=== PATIENT | female | born 1935 | race Caucasian/White ===

== ENCOUNTER 2019-02-21 11:06 | Inpatient (IN) ==
[2019-02-21 12:56] LABS: Apearance,Urine CLOUDY (Clear); Bilirubin,Urine Negative (Negative); Blood, Urine Moderate mg/dL (Negative); Glucose,Urine (UA) Negative (Negative); Hyaline Casts,Urine 130 /LPF (0-3); Ketones,Urine Negative (Negative); Nitrite,Urine Negative (Negative); Protein,Urine 30 MG/DL; RBC,Urine 14 /HPF (0-4); Squamous Epithelial Cell,Urine Occasional /HPF (0-10); Urine Color Yellow (Yellow); Urine Urobilinogen < 2.0 EU/DL (0.2-1.0); WBC,Urine 1204 /HPF (0-6)
[2019-02-21 13:16] LABS: Eosinophils % 0.5 % (0.00-10.9); Hematocrit 31.4 VOL% (35.7-47.0); Hemoglobin 10.1 GM/DL (12.0-16.0); Immature Granulocytes % 0.6 %; Immature Granulocytes Absolute 0.04 #; Lymphocytes # 0.6 10*3/uL (1.4-4.0); Lymphocytes % 9.8 % (21.3-54.2); Mean Corpuscular HGB Conc 32.2 GM/DL (32-36); Mean Corpuscular Volume 90.5 FL (87-102); Mean Platelet Volume 13.1 FL (9.6-12.0); Monocytes % 4.4 % (1.7-12.7); NRBC # 0.04 10*3/uL; Neutrophils % 84.7 % (38.7-73.9); Red Blood Count 3.47 MC/CUMM (3.8-5.5); Red Cell Distribution Width 15.1 % (9.3-17.3); White Blood Count 6.6 T/CUMM (4-12)
[2019-02-21 13:21] LABS: Alanine Aminotransferase 28 U/L (13-56); Albumin 1.8 G/DL (3.4-5.0); Alkaline Phosphatase 120 U/L (45-117); Aspartate Amino Transferase 30 U/L (0-37); Bilirubin,Total < 0.39 MG/DL (0.2-1.0); Blood Urea Nitrogen 34 MG/DL (7-18); CKMB % 11.7 %; Calcium 8.7 MG/DL (8.5-10.1); Estimated Glom Filtration Rate 33 ML/MIN; Glucose 145 MG/DL (74-106); Osmolality,Calculated 285.7 MOS/KG (273-304); Total Protein 5.4 G/DL (6.4-8.3); Troponin I < 0.015 NG/ML (0.00-0.045)
[2019-02-21] MEDS ORDERED: AMPICILLIN/SULBACTAM 3,000 MG in SODIUM CHLORIDE 0.9% 100 ML IV STA (13:21)
[2019-02-21 13:24] LABS: Platelet Count 33 T/CUMM (130-400)
[2019-02-21] MEDS ORDERED: SODIUM CHLORIDE 0.9% 1,000 ML IV STA (13:34)
[2019-02-21 14:18] LABS: Platelet Estimate Decreased
[2019-02-21] MEDS ORDERED: DEXTROSE 50% 25 GM/50 ML VIAL IV PRN (14:48)
[2019-02-21] MEDS ORDERED: ONDANSETRON 4 MG/2 ML VIAL IV PRN (14:48)
[2019-02-21] MEDS ORDERED: ACETAMINOPHEN 325 MG TABLET PO PRN (14:48)
[2019-02-21] MEDS ORDERED: GLUCAGON 1 MG VIAL IM PRN (14:48)
[2019-02-21] MEDS ORDERED: ALBUTEROL/IPRATROPIUM 3 ML NEB RESP TX PRN (14:53)
[2019-02-21] MEDS: INSULIN REGULAR 100 UNIT/ML SUBCUT SCH ×2 (16:49→20:55)
[2019-02-21] MEDS ORDERED: LEVOFLOXACIN INJ 500 MG in PREMIX 1 EACH IV SCH (17:00)
[2019-02-21] MEDS: PHENAZOPYRIDINE 95 MG TABLET PO SCH (18:05)
[2019-02-21] MEDS ORDERED: SODIUM CHLORIDE 0.9% 1,000 ML IV ONE ×2 (19:20→20:18)
[2019-02-21] MEDS ORDERED: NOREPINEPHRINE 8 MG in SODIUM CHLORIDE 0.9% 242 ML IV PRN (20:17)
[2019-02-21] MEDS ORDERED: AZITHROMYCIN INJ 500 MG in SODIUM CHLORIDE 0.9% 250 ML IV SCH (21:00)
[2019-02-21] MEDS: HEPARIN 5,000 UNIT/1 ML VIAL SUBCUT SCH (22:27)
[2019-02-21] MEDS: MEROPENEM 500 MG in SODIUM CHLORIDE 0.9% 100 ML IV SCH (23:50)
[2019-02-22] MEDS ORDERED: VANCOMYCIN INJ 1,000 MG in SODIUM CHLORIDE 0.9% 250 ML IV SCH
[2019-02-22 05:09] LABS: Basophils % 0.1 % (0.0-0.8); Eosinophils % 0.1 % (0.00-10.9); Hematocrit 30.8 VOL% (35.7-47.0); Hemoglobin 10.1 GM/DL (12.0-16.0); Immature Granulocytes % 0.6 %; Immature Granulocytes Absolute 0.05 #; Lymphocytes # 0.3 10*3/uL (1.4-4.0); Lymphocytes % 3.9 % (21.3-54.2); Mean Corpuscular HGB Conc 32.8 GM/DL (32-36); Mean Corpuscular Volume 88.5 FL (87-102); Mean Platelet Volume 13.1 FL (9.6-12.0); Monocytes % 3.8 % (1.7-12.7); NRBC # 0.16 10*3/uL; Neutrophils % 91.5 % (38.7-73.9); Red Blood Count 3.48 MC/CUMM (3.8-5.5); Red Cell Distribution Width 15.1 % (9.3-17.3); White Blood Count 8.8 T/CUMM (4-12)
[2019-02-22 05:10] LABS: Platelet Count 66 T/CUMM (130-400)
[2019-02-22] MEDS ORDERED: FUROSEMIDE 40 MG/4 ML VIAL IV ONE (05:27)
[2019-02-22 05:32] LABS: Alanine Aminotransferase 26 U/L (13-56); Albumin 1.7 G/DL (3.4-5.0); Alkaline Phosphatase 125 U/L (45-117); Aspartate Amino Transferase 31 U/L (0-37); Bilirubin,Total < 0.39 MG/DL (0.2-1.0); Blood Urea Nitrogen 28 MG/DL (7-18); Calcium 7.7 MG/DL (8.5-10.1); Estimated Glom Filtration Rate 33 ML/MIN; Glucose 69 MG/DL (74-106); HDL Cholesterol 54 MG/DL (40-60); Osmolality,Calculated 286.1 MOS/KG (273-304); Total Protein 5.4 G/DL (6.4-8.3); Triglycerides 141 MG/DL (2-150); VLDL CHOLESTEROL 28.2 MG/DL
[2019-02-22] MEDS ORDERED: LEVALBUTEROL 1.25 MG/3 ML NEB RESP TX PRN (05:32)
[2019-02-22] MEDS: HEPARIN 5,000 UNIT/1 ML VIAL SUBCUT SCH ×3 (05:41→23:16)
[2019-02-22 05:48] LABS: Hypochromasia Slight; Lymphocytes 4 % (20-55); Platelet Estimate Decreased; Segmented Neutrophils 90 % (50-85); Total Cells Counted 100
[2019-02-22] MEDS: MEROPENEM 500 MG in SODIUM CHLORIDE 0.9% 100 ML IV SCH ×3 (06:00→23:18)
[2019-02-22] MEDS: INSULIN REGULAR 100 UNIT/ML SUBCUT SCH ×4 (08:01→20:34)
[2019-02-22] MEDS: PHENAZOPYRIDINE 95 MG TABLET PO SCH ×3 (08:01→17:24)
[2019-02-22] MEDS: methylPREDNISolone SOD SUC 40 MG/1 ML VIAL IV SCH ×2 (08:48→21:07)
[2019-02-22] MEDS: LEVALBUTEROL 0.63 MG/3 ML NEB RESP TX SCH ×4 (11:55→23:58)
[2019-02-23] MEDS: VANCOMYCIN INJ 750 MG in SODIUM CHLORIDE 0.9% 250 ML IV SCH (01:57)
[2019-02-23] MEDS: LEVALBUTEROL 0.63 MG/3 ML NEB RESP TX SCH ×5 (03:35→19:20)
[2019-02-23 04:51] LABS: Hematocrit 28.2 VOL% (35.7-47.0); Hemoglobin 9.2 GM/DL (12.0-16.0); Immature Granulocytes % 0.6 %; Immature Granulocytes Absolute 0.07 #; Lymphocytes # 0.5 10*3/uL (1.4-4.0); Lymphocytes % 4.2 % (21.3-54.2); Mean Corpuscular HGB Conc 32.6 GM/DL (32-36); Mean Corpuscular Volume 90.4 FL (87-102); Mean Platelet Volume 13.9 FL (9.6-12.0); Monocytes % 1.4 % (1.7-12.7); Neutrophils % 93.8 % (38.7-73.9); Red Blood Count 3.12 MC/CUMM (3.8-5.5); Red Cell Distribution Width 15.7 % (9.3-17.3); White Blood Count 12.4 T/CUMM (4-12)
[2019-02-23 05:00] LABS: Platelet Count 47 T/CUMM (130-400)
[2019-02-23 05:04] LABS: Albumin 1.6 G/DL (3.4-5.0); Bilirubin,Total 0.6 MG/DL (0.2-1.0); Calcium 7.9 MG/DL (8.5-10.1); Osmolality,Calculated 304.3 MOS/KG (273-304); Total Protein 5.3 G/DL (6.4-8.3)
[2019-02-23 05:22] LABS: Band Neutrophils 9 % (0-10); Lymphocytes 4 % (20-55); Metamyelocytes 1 %; Nucleated Red Blood Cells 1 (0-5); Total Cells Counted 100
[2019-02-23 05:23] LABS: Anisocytosis Slight; Macrocytosis Slight; Platelet Estimate Decreased; Segmented Neutrophils 85 % (50-85)
[2019-02-23] MEDS: HEPARIN 5,000 UNIT/1 ML VIAL SUBCUT SCH ×3 (06:01→21:06)
[2019-02-23] MEDS: MEROPENEM 500 MG in SODIUM CHLORIDE 0.9% 100 ML IV SCH ×3 (06:01→23:25)
[2019-02-23] MEDS: INSULIN REGULAR 100 UNIT/ML SUBCUT SCH ×4 (08:35→21:06)
[2019-02-23] MEDS: methylPREDNISolone SOD SUC 40 MG/1 ML VIAL IV SCH ×2 (09:57→21:06)
[2019-02-23] MEDS: PHENAZOPYRIDINE 95 MG TABLET PO SCH ×3 (09:57→17:39)
[2019-02-23] MEDS ORDERED: NON-FORMULARY MEDICATION (Melatonin 1 MG) PO SCH (21:00)
[2019-02-23] MEDS: BISACODYL 5 MG TABLET PO SCH (21:32)
[2019-02-24] MEDS: LEVALBUTEROL 0.63 MG/3 ML NEB RESP TX SCH ×3 (00:34→07:44)
[2019-02-24] MEDS: VANCOMYCIN INJ 750 MG in SODIUM CHLORIDE 0.9% 250 ML IV SCH (02:40)
[2019-02-24 04:47] LABS: Basophils % 0.1 % (0.0-0.8); Hematocrit 25.7 VOL% (35.7-47.0); Hemoglobin 8.3 GM/DL (12.0-16.0); Immature Granulocytes % 0.7 %; Immature Granulocytes Absolute 0.07 #; Lymphocytes # 0.6 10*3/uL (1.4-4.0); Lymphocytes % 5.5 % (21.3-54.2); Mean Corpuscular HGB Conc 32.3 GM/DL (32-36); Mean Corpuscular Volume 89.9 FL (87-102); Mean Platelet Volume 12.5 FL (9.6-12.0); Monocytes % 3.9 % (1.7-12.7); NRBC # 0.06 10*3/uL; Neutrophils % 89.8 % (38.7-73.9); Platelet Count 52 T/CUMM (130-400); Red Blood Count 2.86 MC/CUMM (3.8-5.5); Red Cell Distribution Width 15.5 % (9.3-17.3)
[2019-02-24 05:04] LABS: Alanine Aminotransferase 26 U/L (13-56); Albumin 1.6 G/DL (3.4-5.0); Alkaline Phosphatase 99 U/L (45-117); Aspartate Amino Transferase 50 U/L (0-37); Bilirubin,Total < 0.39 MG/DL (0.2-1.0); Blood Urea Nitrogen 42 MG/DL (7-18); Calcium 8.2 MG/DL (8.5-10.1); Estimated Glom Filtration Rate 24 ML/MIN; Glucose 123 MG/DL (74-106); Osmolality,Calculated 312.7 MOS/KG (273-304); Total Protein 4.9 G/DL (6.4-8.3)
[2019-02-24 05:08] LABS: Microcytosis 1+; Platelet Estimate Decreased
[2019-02-24] MEDS: HEPARIN 5,000 UNIT/1 ML VIAL SUBCUT SCH (06:01)
[2019-02-24] MEDS: INSULIN REGULAR 100 UNIT/ML SUBCUT SCH ×4 (08:25→22:30)
[2019-02-24] MEDS: methylPREDNISolone SOD SUC 40 MG/1 ML VIAL IV SCH ×2 (08:25→20:55)
[2019-02-24] MEDS: acetaZOLAMIDE 250 MG TABLET PO SCH (08:26)
[2019-02-24] MEDS: MEROPENEM 500 MG in SODIUM CHLORIDE 0.9% 100 ML IV SCH ×3 (08:26→23:05)
[2019-02-24] MEDS: MULTIVITAMIN (CENTRUM) TABLET PO SCH (08:26)
[2019-02-24] MEDS: PHENAZOPYRIDINE 95 MG TABLET PO SCH ×3 (08:26→17:23)
[2019-02-24] MEDS: BISACODYL 5 MG TABLET PO SCH ×2 (08:26→20:55)
[2019-02-24] MEDS: ALBUTEROL/IPRATROPIUM 3 ML NEB RESP TX SCH ×2 (13:22→18:50)
[2019-02-25] MEDS: ALBUTEROL/IPRATROPIUM 3 ML NEB RESP TX SCH ×4 (00:10→19:31)
[2019-02-25] MEDS: VANCOMYCIN INJ 750 MG in SODIUM CHLORIDE 0.9% 250 ML IV SCH (01:22)
[2019-02-25] MEDS: MEROPENEM 500 MG in SODIUM CHLORIDE 0.9% 100 ML IV SCH (06:51)
[2019-02-25] MEDS: INSULIN REGULAR 100 UNIT/ML SUBCUT SCH ×4 (07:40→22:52)
[2019-02-25] MEDS: cefTRIAXone 1,000 MG in SYRINGE 1 EACH IV SCH (09:11)
[2019-02-25] MEDS: methylPREDNISolone SOD SUC 40 MG/1 ML VIAL IV SCH ×2 (09:16→22:53)
[2019-02-25] MEDS: HYDROmorphone 2 MG/1 ML VIAL IV PRN ×2 (09:16→23:01)
[2019-02-25] MEDS: PHENAZOPYRIDINE 95 MG TABLET PO SCH ×3 (09:24→17:12)
[2019-02-25] MEDS: MULTIVITAMIN (CENTRUM) TABLET PO SCH (09:25)
[2019-02-25] MEDS: BISACODYL 5 MG TABLET PO SCH ×2 (09:25→22:53)
[2019-02-25] MEDS: acetaZOLAMIDE 250 MG TABLET PO SCH (09:25)
[2019-02-25 11:01] LABS: Calcium 8.3 MG/DL (8.5-10.1); Osmolality,Calculated 323.4 MOS/KG (273-304)
[2019-02-26] MEDS: ALBUTEROL/IPRATROPIUM 3 ML NEB RESP TX SCH ×4 (00:11→19:05)
[2019-02-26] MEDS: methylPREDNISolone SOD SUC 40 MG/1 ML VIAL IV SCH (09:11)
[2019-02-26] MEDS: INSULIN REGULAR 100 UNIT/ML SUBCUT SCH ×4 (09:12→23:37)
[2019-02-26] MEDS: PHENAZOPYRIDINE 95 MG TABLET PO SCH ×3 (09:14→17:23)
[2019-02-26] MEDS: MULTIVITAMIN (CENTRUM) TABLET PO SCH (09:14)
[2019-02-26] MEDS: acetaZOLAMIDE 250 MG TABLET PO SCH (09:15)
[2019-02-26] MEDS: BISACODYL 5 MG TABLET PO SCH (09:15)
[2019-02-26] MEDS: cefTRIAXone 1,000 MG in SYRINGE 1 EACH IV SCH (09:39)
[2019-02-26 10:34] LABS: Basophils % 0.1 % (0.0-0.8); Hematocrit 21.2 VOL% (35.7-47.0); Immature Granulocytes % 0.9 %; Immature Granulocytes Absolute 0.08 #; Lymphocytes # 0.7 10*3/uL (1.4-4.0); Lymphocytes % 7.5 % (21.3-54.2); Mean Corpuscular HGB Conc 31.1 GM/DL (32-36); Mean Corpuscular Volume 94.2 FL (87-102); Mean Platelet Volume 12.5 FL (9.6-12.0); Monocytes % 4.3 % (1.7-12.7); NRBC # 0.03 10*3/uL; Neutrophils % 87.2 % (38.7-73.9); Red Cell Distribution Width 16.3 % (9.3-17.3); White Blood Count 9.2 T/CUMM (4-12)
[2019-02-26 10:36] LABS: Hemoglobin 6.6 GM/DL (12.0-16.0); Platelet Count 64 T/CUMM (130-400); Red Blood Count 2.25 MC/CUMM (3.8-5.5)
[2019-02-26 10:51] LABS: Hypochromasia 1+; Microcytosis 1+; Platelet Estimate Decreased
[2019-02-26 11:02] LABS: Calcium 8.5 MG/DL (8.5-10.1)
[2019-02-26] MEDS ORDERED: SODIUM CHLORIDE 0.9% 1,000 ML IV PRN ×2 (16:04→16:30)
[2019-02-27] MEDS: ALBUTEROL/IPRATROPIUM 3 ML NEB RESP TX SCH ×3 (00:29→12:53)
[2019-02-27] MEDS: methylPREDNISolone SOD SUC 40 MG/1 ML VIAL IV SCH ×2 (01:50→10:34)
[2019-02-27] MEDS: BISACODYL 5 MG TABLET PO SCH ×2 (05:04→10:39)
[2019-02-27 07:03] LABS: Basophils % 0.1 % (0.0-0.8); Hematocrit 34.6 VOL% (35.7-47.0); Immature Granulocytes Absolute 0.13 #; Lymphocytes # 0.7 10*3/uL (1.4-4.0); Mean Corpuscular HGB Conc 32.4 GM/DL (32-36); Mean Corpuscular Volume 88.9 FL (87-102); Mean Platelet Volume 13.6 FL (9.6-12.0); Monocytes % 3.8 % (1.7-12.7); NRBC # 0.03 10*3/uL; Neutrophils % 90.1 % (38.7-73.9); Red Cell Distribution Width 15.5 % (9.3-17.3)
[2019-02-27 07:09] LABS: Hemoglobin 11.2 GM/DL (12.0-16.0); Platelet Count 52 T/CUMM (130-400); Red Blood Count 3.89 MC/CUMM (3.8-5.5); White Blood Count 13.5 T/CUMM (4-12)
[2019-02-27 07:24] LABS: Calcium 8.8 MG/DL (8.5-10.1); Osmolality,Calculated 338.9 MOS/KG (273-304)
[2019-02-27 07:35] LABS: Hypochromasia 1+; Microcytosis 1+; Target Cells Slight
[2019-02-27 07:36] LABS: Platelet Estimate Decreased
[2019-02-27] MEDS: cefTRIAXone 1,000 MG in SYRINGE 1 EACH IV SCH (10:09)
[2019-02-27] MEDS: INSULIN REGULAR 100 UNIT/ML SUBCUT SCH ×3 (10:09→17:02)
[2019-02-27] MEDS: MULTIVITAMIN (CENTRUM) TABLET PO SCH (10:11)
[2019-02-27] MEDS: PHENAZOPYRIDINE 95 MG TABLET PO SCH ×2 (10:11→14:19)
[2019-02-27] MEDS: acetaZOLAMIDE 250 MG TABLET PO SCH (10:12)
[2019-02-27] MEDS ORDERED: CARBOXYMETHYLCELLULOSE 1% OPH SOLN BOTH EYES PRN (10:19)
[2019-02-27] MEDS ORDERED: SODIUM CHLORIDE 0.45% 1,000 ML IV SCH (11:00)
[2019-02-27 18:02] VITALS: BP 103/59
== END 2019-02-27 18:20 | DRG 871 ==
LOC: EDUNIT# → EDBD → N.ED 11:06 → SUATTDRO 14:48 → N.EDINP 14:48 → N.2E 15:33 → N.CC 19:34 → N.5E 02-24 05:44
PROVIDERS: ADMIT Internal Medicine; ATTEND Internal Medicine